=== PATIENT | female | born 1990 | race Caucasian/White ===

== ENCOUNTER 2022-01-09 17:34 | Emergency (ER) | payer MEDICAID, OTHER ==
[~2022-01-09] VITALS: Ht 152.4 cm; Wt 73.0 kg
[2022-01-09 18:48] LABS: Basophils # (auto) 0 10 ^3/uL (0-0.2); Basophils % (auto) 0.7 % (0.0-2.0); Eosinophils # (auto) 0 10 ^3/uL (0-0.8); Hematocrit 33.9 % (36.0-46.0); Hemoglobin 11.4 g/dL (12.2-16.2); Lymphocytes # (auto) 1.4 10 ^3/uL (0.4-5.4); Lymphocytes % (auto) 37.1 % (10.0-50.0); Mean Corpuscular Hemoglobin 30.9 pg (28.0-32.0); Mean Corpuscular Hgb Conc. 33.6 g/dL (32.0-36.0); Mean Corpuscular Volume 91.8 fL (80.0-100.0); Monocytes # (auto) 0.2 10 ^3/uL (0-1.3); Monocytes % (auto) 4.6 % (0.0-12.0); Neutrophils # (auto) 2.1 10 ^3/uL (1.6-8.6); Neutrophils % (auto) 56.6 % (37.0-80.0); Nucleated Red Blood Cells % 0.1 %; Red Blood Cells 3.69 10^6/uL (4.0-5.20); Red Cell Distribution Width 12.9 % (11.8-14.3); White Blood Cell 3.8 10^3/uL (4.4-10.8)
[2022-01-09 19:09] LABS: Albumin 3.9 g/dL (3.4-5.0); Calcium 8.7 mg/dL (8.5-10.1); Magnesium 2.4 mg/dL (1.6-2.6)
[2022-01-09 19:13] LABS: BUN/Creatinine Ratio 19.8; Bilirubin, Total 0.3 mg/dL (0.2-1.0); Total Protein 7.7 g/dL (6.4-8.2)
[2022-01-09] MEDS ORDERED: PREGABALIN CAPSULE 75 MG CAP PO ONE (22:00)
[2022-01-09] MEDS ORDERED: PREG100C PO (22:08)
[2022-01-09 22:21] VITALS: BP 132/86
== END 2022-01-09 22:24 | disposition home or self-care (01) ==
LOC: ER 17:34 → EDBD 17:34 → ER 22:21
DX: D64.9 Anemia, unspecified (principal); D72.819 Decreased white blood cell count, unspecified; R07.89 Other chest pain; M25.512 Pain in left shoulder
CPT/HCPCS: 36415; 71046; 80053; 83735; 84484; 85025; 93005

== ENCOUNTER 2022-04-16 11:50 | Emergency (ER) | payer MEDICAID ==
[~2022-04-16] VITALS: Ht 162.6 cm; Wt 81.5 kg
[~2022-04-16 11:50] MED LIST: PREG100C PO
[2022-04-16 13:50] LABS: Urine Bacteria FEW /hpf (None Seen); Urine Blood Negative /uL (Negative); Urine Mucus FEW (None Seen); Urine Specific Gravity 1.022 (1.001-1.035); Urine WBC 2 /hpf (0 - 5)
[2022-04-16] MEDS ORDERED: ONDANSETRON HCL 4 MG/2 ML VIAL IV ONE (14:00)
[2022-04-16] MEDS ORDERED: diphenhdrAMINE HCL 50 MG/1 ML VL IV ONE (14:00)
[2022-04-16] MEDS ORDERED: METOCLOPRAMIDE HCL 5MG/ml INJ 2ml VIAL IV ONE (14:00)
[2022-04-16] MEDS ORDERED: ACETAMINOPHEN 500 MG TAB PO ONE (14:00)
[2022-04-16] MEDS ORDERED: SODIUM CHLORIDE 0.9% 1,000 ML IV ONE (14:00)
[2022-04-16 14:21] LABS: Basophils # (auto) 0 10 ^3/uL (0-0.2); Basophils % (auto) 0.5 % (0.0-2.0); Eosinophils # (auto) 0 10 ^3/uL (0-0.8); Eosinophils % (auto) 0.4 % (0.0-7.0); Hematocrit 36.6 % (36.0-46.0); Hemoglobin 12.6 g/dL (12.2-16.2); Lymphocytes # (auto) 1.9 10 ^3/uL (0.4-5.4); Lymphocytes % (auto) 28.1 % (10.0-50.0); Mean Corpuscular Hemoglobin 32.4 pg (28.0-32.0); Mean Corpuscular Hgb Conc. 34.4 g/dL (32.0-36.0); Mean Corpuscular Volume 94.4 fL (80.0-100.0); Monocytes # (auto) 0.4 10 ^3/uL (0-1.3); Monocytes % (auto) 6.2 % (0.0-12.0); Neutrophils # (auto) 4.4 10 ^3/uL (1.6-8.6); Neutrophils % (auto) 64.8 % (37.0-80.0); Nucleated Red Blood Cells % 0.1 %; Red Blood Cells 3.88 10^6/uL (4.0-5.20); Red Cell Distribution Width 13.3 % (11.8-14.3); White Blood Cell 6.8 10^3/uL (4.4-10.8)
[2022-04-16 14:35] LABS: BUN/Creatinine Ratio 17.1; Calcium 8.8 mg/dL (8.5-10.1); Potassium 3.9 mmol/L (3.5-5.1)
[2022-04-16 16:10] VITALS: BP 100/60
[2022-04-16] MEDS ORDERED: cefTRIAXone SOD 1,000 MG VL IM ONE (17:00)
[2022-04-16] MEDS ORDERED: PROM25TA5 PO (17:01)
[2022-04-16] MEDS ORDERED: ACET-1080 PO (17:01)
== END 2022-04-16 17:17 | disposition home or self-care (01) ==
LOC: ER 11:50
DX: O21.8 Other vomiting complicating pregnancy (principal); O23.41 Unspecified infection of urinary tract in pregnancy, first trimester; N39.0 Urinary tract infection, site not specified; G43.909 Migraine, unspecified, not intractable, without status migrainosus; R10.2 Pelvic and perineal pain; Z86.2 Personal history of diseases of the blood and blood-forming organs and certain disorders involving the immune mechanism; Z79.899 Other long term (current) drug therapy; Z3A.01 Less than 8 weeks gestation of pregnancy
CPT/HCPCS: 36415; 80048; 81001; 84702; 85025; 96361; 96372; 96374; 96375; 99284; J0696; J1200; J2765; J7030